=== PATIENT | female | born 1990 | race Caucasian/White ===

== ENCOUNTER 2017-09-01 13:09 | Emergency (ER) | payer SELFPAY ==
[2017-09-01 13:19] VITALS: BP 122/70
--- NOTE | 2017-09-01 13:36 | ER Document Report ---
ED Medical Screen (RME) - General Chief Complaint: Vaginal Bleeding Stated Complaint: VAGINAL BLEEDING Time Seen by Provider: 09/01/17 13:21 Mode of Arrival: Ambulatory Information source: Patient TRAVEL OUTSIDE OF THE [place] IN LAST 30 DAYS: No - HPI Patient complains to provider of: Vaginal bleeding Onset: This morning Notes: 09/01/17 13:36 Patient is a 27-year-old female presenting to the emergency room today complaining of vaginal bleeding and brownish discharge, with mild cramping, states her last menstrual period was 08/07/2017 and she normally has a menstrual cycle every 28 days regularly, she states that her thinks she may be because she is having other symptoms that are associated with , and wants to ensure she is not currently having a miscarriage, patient did not take a home test - Related Data Allergies/Adverse Reactions: No Known Allergies Allergy (Verified 09/01/17 13:16) Past Medical History Renal/ Medical History: Denies: Hx Peritoneal Dialysis Physical Exam - Vital signs Vitals: Temp Pulse Resp BP Pulse Ox 98.2 F 90 16 122/70 100 09/01/17 13:16 09/01/17 13:16 09/01/17 13:16 09/01/17 13:16 09/01/17 13:16 Course - Vital Signs Vital signs: Temp Pulse Resp BP Pulse Ox 98.2 F 90 16 122/70 100 09/01/17 13:16 09/01/17 13:16 09/01/17 13:16 09/01/17 13:16 09/01/17 13:16
[2017-09-01 14:21] LABS: APPEARANCE,URINE CLEAR; BILIRUBIN,URINE NEGATIVE (NEGATIVE); GLUCOSE, URINE NEGATIVE (NEGATIVE); KETONES,URINE NEGATIVE (NEGATIVE); LEUKOCYTE ESTERASE,URINE NEGATIVE (NEGATIVE); NITRITE,URINE NEGATIVE (NEGATIVE); PROTEIN,URINE NEGATIVE (NEGATIVE); URINE SPECIFIC GRAVITY 1.024; UROBILINOGEN,URINE NEGATIVE mg/dL (<2.0)
--- NOTE | 2017-09-01 14:23 | ER Document Report ---
ED GI/ - General Chief Complaint: Vaginal Bleeding Stated Complaint: VAGINAL BLEEDING Time Seen by Provider: 09/01/17 13:21 Mode of Arrival: Ambulatory TRAVEL OUTSIDE OF THE [place] IN LAST 30 DAYS: No - Related Data Allergies/Adverse Reactions: No Known Allergies Allergy (Verified 09/01/17 13:16) Past Medical History - General Information source: Patient Last Menstrual Period: 08/07/2017 - Social History Smoking Status: Current Every Day Smoker Frequency of alcohol use: None Drug Abuse: None Patient has suicidal ideation: No Patient has homicidal ideation: No Renal/ Medical History: Denies: Hx Peritoneal Dialysis Past Surgical History: Reports: Hx Cholecystectomy, Hx Gynecologic Surgery - c- section x 3 Physical Exam - Vital signs Vitals: Temp Pulse Resp BP Pulse Ox 98.2 F 90 16 122/70 100 09/01/17 13:16 09/01/17 13:16 09/01/17 13:16 09/01/17 13:16 09/01/17 13:16 Interpretation: Normal. No: Tachycardic, Tachypneic Course - Vital Signs Vital signs: Temp Pulse Resp BP Pulse Ox 98.2 F 90 16 122/70 100 09/01/17 13:16 09/01/17 13:16 09/01/17 13:16 09/01/17 13:16 09/01/17 13:16 - Laboratory Result Diagrams: 09/01/17 13:57 09/01/17 13:57
[2017-09-01 14:32] LABS: ABSOLUTE BASOPHILS # (AUTO) 0.1 10^3/uL (0.0-0.2); ABSOLUTE EOSINOPHILS # (AUTO) 0.4 10^3/uL (0.0-0.6); ABSOLUTE MONOCYTES (AUTO) 0.6 10^3/uL (0.1-1.4); ABSOLUTE NEUT (AUTO) 5.3 10^3/uL (1.7-8.2); BASOPHILS % (AUTO) 0.6 % (0-2); EOSINOPHILS % (AUTO) 4.8 % (0-6); HEMATOCRIT 39.5 % (36.0-47.0); HEMOGLOBIN 13.6 g/dL (12.0-15.5); HGB HCT DIFFERENCE 1.3; LYMPHOCYTES % (AUTO) 23.7 % (13-45); MEAN CORPUSCULAR HEMOGLOBIN 31.6 pg (27.0-33.4); MEAN CORPUSCULAR HGB CONC 34.4 g/dL (32.0-36.0); MEAN CORPUSCULAR VOLUME 92 fl (80-97); MONOCYTES % (AUTO) 6.8 % (3-13); RED BLOOD COUNT 4.29 10^6/uL (3.72-5.28); RED CELL DISTRIBUTION WIDTH 12.2 % (11.5-14.0); SEGMENTED NEUTROPHILS % (AUTO) 64.1 % (42-78); WHITE BLOOD COUNT 8.3 10^3/uL (4.0-10.5)
[2017-09-01 14:55] LABS: ALANINE AMINOTRANSFERASE 34 U/L (9-52); ALBUMIN 4.7 g/dL (3.5-5.0); ALKALINE PHOSPHATASE 46 U/L (38-126); ANION GAP 12 (5-19); ASPARTATE AMINO TRANSFERASE 26 U/L (14-36); BILIRUBIN,DIRECT 0.3 mg/dL (0.0-0.4); BILIRUBIN,TOTAL 0.4 mg/dL (0.2-1.3); BLOOD UREA NITROGEN 10 mg/dL (7-20); CALCIUM 9.7 mg/dL (8.4-10.2); CARBON DIOXIDE 26 mmol/L (22-30); CHLORIDE 106 mmol/L (98-107); CREATININE RESULT 0.64 mg/dL (0.52-1.25); GLUCOSE 78 mg/dL (75-110); POTASSIUM 4.1 mmol/L (3.6-5.0); SODIUM 143.6 mmol/L (137-145); TOTAL PROTEIN 7.2 g/dL (6.3-8.2)
[2017-09-01] MEDS ORDERED: LANSOPRAZOLE 30 MG TAB.RAP.DR PO ONE (15:12)
[2017-09-01] MEDS ORDERED: LIDOCAINE 2% VISCOUS SOLN 20 ML UDCUP PO ONE (15:12)
[2017-09-01] MEDS ORDERED: NORMAL SALINE 1000 ML 1,000 ML IV ONE (15:13)
--- NOTE | 2017-09-01 15:13 | ER Document Report ---
ED General - General Chief Complaint: Vaginal Bleeding Stated Complaint: VAGINAL BLEEDING Time Seen by Provider: 09/01/17 13:21 Mode of Arrival: Ambulatory Information source: Patient Notes: 27-year-old female felt shaky at 830 this morning and started having vaginal spotting at 9 AM that was painless. She did have some nausea. L MP August 07. . No new sex partner. No dyspareunia. No vaginal discharge. No dysuria. No fever. She felt lightheaded and vomited twice at 915. She has had chronic daily midline heartburn for 2 weeks. No diarrhea. History of cholecystectomy and 3 C-sections. TRAVEL OUTSIDE OF THE [place] IN LAST 30 DAYS: No - Related Data Allergies/Adverse Reactions: No Known Allergies Allergy (Verified 09/01/17 13:16) Past Medical History - General Information source: Patient Last Menstrual Period: 08/07/2017 - Social History Smoking Status: Current Every Day Smoker Frequency of alcohol use: None Drug Abuse: None Lives with: Family Family History: Reviewed & Not Pertinent Patient has suicidal ideation: No Patient has homicidal ideation: No - Medical History Medical History: Negative Renal/ Medical History: Denies: Hx Peritoneal Dialysis Past Surgical History: Reports: Hx Cholecystectomy, Hx Gynecologic Surgery - c- section x 3 Review of Systems - Review of Systems Constitutional: No symptoms reported EENT: No symptoms reported Cardiovascular: No symptoms reported Respiratory: No symptoms reported Gastrointestinal: No symptoms reported Genitourinary: No symptoms reported Female Genitourinary: See HPI Musculoskeletal: No symptoms reported Skin: No symptoms reported Hematologic/Lymphatic: No symptoms reported Neurological/Psychological: No symptoms reported Physical Exam - Vital signs Vitals: Temp Pulse Resp BP Pulse Ox 98.2 F 90 16 122/70 100 09/01/17 13:16 09/01/17 13:16 09/01/17 13:16 09/01/17 13:16 09/01/17 13:16 Interpretation: Normal - General General appearance: Appears well, Alert - HEENT Head: Normocephalic, Atraumatic Eyes: Normal Pupils: PERRL Neck: Supple. No: Thyroid nodule - Respiratory Respiratory status: No respiratory distress Chest status: Nontender Breath sounds: Normal Chest palpation: Normal - Cardiovascular Rhythm: Regular Heart sounds: Normal auscultation Murmur: No - Abdominal Inspection: Normal Distension: No distension Bowel sounds: Normal Tenderness: Nontender. No: Tender Organomegaly: No organomegaly - Back Back: Normal, Nontender. No: CVA tenderness - Extremities General upper extremity: Normal inspection, Nontender, Normal color, Normal ROM , Normal temperature General lower extremity: Normal inspection, Nontender, Normal color, Normal ROM , Normal temperature, Normal weight bearing. No: Nesha's sign - Neurological Neuro grossly intact: Yes Cognition: Normal Orientation: AAOx4 Waldorf Coma Scale Eye Opening: Spontaneous Waldorf Coma Scale Verbal: Oriented Heena Coma Scale Motor: Obeys Commands Waldorf Coma Scale Total: 15 Speech: Normal Motor strength normal: LUE, RUE, LLE, RLE Sensory: Normal - Psychological Associated symptoms: Normal affect, Normal mood - Skin Skin Temperature: Warm Skin Moisture: Dry Skin Color: Normal Skin irregularity: negative: Rash Course - Re-evaluation Re-evalutation: 09/01/17 15:28 Lab work is negative. She is not . She does not want IV fluid. 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 I will treat her heartburn with proton pump inhibitors. She does not want a pelvic exam or further investigation as to why she has a vaginal bleeding. Still does not have any pelvic pain. - Vital Signs Vital signs: Temp Pulse Resp BP Pulse Ox 98.2 F 90 16 122/70 100 09/01/17 13:16 09/01/17 13:16 09/01/17 13:16 09/01/17 13:16 09/01/17 13:16 - Laboratory Result Diagrams: 09/01/17 13:57 09/01/17 13:57 Discharge - Discharge Clinical Impression: midcycle vaginal bleeding, Dizziness Vomiting Qualifiers: Vomiting type: unspecified Vomiting Intractability: non-intractable Nausea presence: with nausea Qualified Code(s): R11.2 - Nausea with vomiting, unspecified Condition: Good Disposition: HOME, SELF-CARE Instructions: Antinausea Medication ([facility]), Prilosec (Acid Pump Inhibitor) ([facility]) , Reflux Disease (GERD) ([facility]), Vaginal Bleeding ([facility]), Vomiting ([facility]) Additional Instructions: to er if worse plenty of fluids see OBGYN if bleeding persists see bi consultant dr munoz for heartburn if it persists Please complete the patient satisfaction survey if you get one, and return it.. If you do not receive a survey, then you can go to the [facility] website, [email or web address] and place your comments about your very good care. Thank you very much. It was a pleasure being your medical provider today. Prescriptions: Esomeprazole Magnesium [Nexium] 40 mg PO DAILY #30 capsule.dr Referrals: JEM KUMAR MD [ACTIVE STAFF] - Follow up as needed DERIAN MUNOZ MD [ACTIVE STAFF] - Follow up as needed
[2017-09-01] MEDS ORDERED: ONDANSETRON 4 MG TAB.RAPDIS PO ONE (15:25)
[2017-09-01] MEDS ORDERED: MAG HYDROX/AL HYDROX/SIMETH SUSP 30 ML UDCUP PO ONE (15:27)
== END 2017-09-01 15:51 | disposition home or self-care (01) ==
LOC: ER 13:09
DX: R42 Dizziness and giddiness (principal); R11.2 Nausea with vomiting, unspecified; N93.9 Abnormal uterine and vaginal bleeding, unspecified; Z90.49 Acquired absence of other specified parts of digestive tract; F17.200 Nicotine dependence, unspecified, uncomplicated
CPT/HCPCS: 99284; 86900; 86901; 36415; 84702; 85025; 80053; 81001; S0119; J3490

== ENCOUNTER 2020-06-04 09:10 | Emergency (ER) | payer SELFPAY ==
[2020-06-04 09:50] LABS: ABSOLUTE BASOPHILS # (AUTO) 0.1 10^3/uL (0.0-0.2); ABSOLUTE EOSINOPHILS # (AUTO) 0.2 10^3/uL (0.0-0.6); ABSOLUTE LYMPHOCYTES (AUTO) 1.3 10^3/uL (0.5-4.7); ABSOLUTE MONOCYTES (AUTO) 0.6 10^3/uL (0.1-1.4); ABSOLUTE NEUT (AUTO) 6.8 10^3/uL (1.7-8.2); BASOPHILS % (AUTO) 0.9 % (0-2); HEMOGLOBIN 14.3 g/dL (12.0-15.5); LYMPHOCYTES % (AUTO) 14.1 % (13-45); MEAN CORPUSCULAR HEMOGLOBIN 32.1 pg (27.0-33.4); MEAN CORPUSCULAR VOLUME 95 fl (80-97); MONOCYTES % (AUTO) 6.9 % (3-13); PLATELET COUNT 301 10^3/uL (150-450); RED BLOOD COUNT 4.44 10^6/uL (3.72-5.28); RED CELL DISTRIBUTION WIDTH 12.6 % (11.5-14.0); SEGMENTED NEUTROPHILS % (AUTO) 76.1 % (42-78); TOTAL CELLS COUNTED % (AUTO) 100 %; WHITE BLOOD COUNT 8.9 10^3/uL (4.0-10.5)
[2020-06-04 10:05] LABS: ALBUMIN 4.2 g/dL (3.5-5.0); ALKALINE PHOSPHATASE 42 U/L (38-126); ASPARTATE AMINO TRANSFERASE 23 U/L (14-36); BILIRUBIN,TOTAL 0.4 mg/dL (0.2-1.3); BLOOD UREA NITROGEN 6 mg/dL (7-20); CALCIUM 9.1 mg/dL (8.4-10.2); CARBON DIOXIDE 27 mmol/L (22-30); CHLORIDE 107 mmol/L (98-107); GLUCOSE 98 mg/dL (75-110); POTASSIUM 4.2 mmol/L (3.6-5.0); TOTAL PROTEIN 6.8 g/dL (6.3-8.2)
[2020-06-04 10:06] LABS: ALCOHOL < 10 mg/dL (NONE DETECTED); ANION GAP 5 (5-19)
[2020-06-04 11:58] LABS: APPEARANCE,URINE SLIGHTLY-CLOUDY; BILIRUBIN,URINE NEGATIVE (NEGATIVE); COLOR,URINE YELLOW; GLUCOSE, URINE NEGATIVE (NEGATIVE); KETONES,URINE NEGATIVE (NEGATIVE); LEUKOCYTE ESTERASE,URINE TRACE (NEGATIVE); NITRITE,URINE NEGATIVE (NEGATIVE); PROTEIN,URINE 100 mg/dL (NEGATIVE); URINE SPECIFIC GRAVITY 1.024; UROBILINOGEN,URINE NEGATIVE mg/dL (<2.0)
[2020-06-04 12:16] LABS: URINE AMPHETAMINES SCREEN NEGATIVE; URINE BARBITURATES SCREEN NEGATIVE; URINE BENZODIAZEPINES SCREEN NEGATIVE; URINE COCAINE SCREEN NEGATIVE; URINE METHADONE SCREEN NEGATIVE; URINE PHENCYCLIDINE SCREEN NEGATIVE
[2020-06-04 12:21] LABS: URINE MARIJUANA (THC) SCREEN UNCONFIRMED POSITIVE
--- NOTE | 2020-06-04 13:04 | ER Document Report ---
ED General - General Chief Complaint: Probable Seizure Stated Complaint: SEIZURES Time Seen by Provider: 06/04/20 10:08 Primary Care Provider: EPI BEAVERS MD [NO LOCAL MD] - Follow up as needed KOKI PEREZ MD [ACTIVE STAFF] - Follow up as needed TRAVEL OUTSIDE OF THE [place] IN LAST 30 DAYS: No - HPI Notes: Patient is a 29-year-old female who presents to the emergency department for evaluation after a possible seizure. The patient states she has a history of seizures. She has been off of medications. She states her last seizure was over 15 months ago. She states today she felt dizzy, nearly fell off of the toilet. She went into her bed and "lost time." She states that is what is like when she feels like she has had a seizure. She is driving. She denies any pain. She said no recent head trauma. She states she was not incontinent, did not bite her tongue. She does states she feels "[id number] all over." She was on medications in the past to control her seizures, but she cannot remember what they were. She is currently menstruating. - Related Data Allergies/Adverse Reactions: No Known Allergies Allergy (Verified 09/01/17 13:16) Home Medications: None Past Medical History - General Information source: Patient - Social History Smoking Status: Current Every Day Smoker Frequency of alcohol use: None Family History: Reviewed & Not Pertinent Neurological Medical History: Reports: Hx Seizures Renal/ Medical History: Denies: Hx Peritoneal Dialysis Past Surgical History: Reports: Hx Section - X3, Hx Cholecystectomy Review of Systems - Review of Systems Constitutional: Weakness Neurological/Psychological: See HPI -: Yes All other systems reviewed and negative Physical Exam - Vital signs Vitals: Temp Pulse Resp BP Pulse Ox 98.6 F 78 18 118/83 98 06/04/20 09:16 06/04/20 09:16 06/04/20 09:16 06/04/20 09:16 06/04/20 09:16 - Notes Notes: Vital signs reviewed, please refer to chart. Head is normocephalic, atraumatic. Pupils equal round, reactive to light. Neck is supple without meningismus. Heart is regular rate and rhythm. Lungs are clear to auscultation bilaterally. Abdomen is soft, nontender, normoactive bowel sounds throughout. Extremities without cyanosis, clubbing. Posterior calves are nontender. Peripheral pulses are equal. Skin is warm and dry. Patient is awake, alert, oriented x3. She is slow to follow commands, but can do so without difficulty or apparent confusion. Cranial nerves II - XII are grossly intact without focal neurological deficits. Strength is plus 4 out of 5 bilateral upper and lower extremities. Sensation is intact. Reflexes symmetrical. Intact [id number], rapid alternating movements, [id number]. Course - Re-evaluation Re-evalutation: 06/04/20 13:07 Patient presents to the emergency department for evaluation of reported possible seizure. Her laboratory investigations are entirely unremarkable. Her neurological exam reveals mildly diminished strength throughout, but no focal findings. I explained to the patient that under no circumstances should she be operating a motor vehicle. She has a history of a seizure disorder, was on medications, and is off of them now. She needs to follow-up with primary care and neurology. She voiced understanding to these instructions, given both verbally and written. Otherwise, she has no significant acidosis. Her only significant abnormality was marijuana in her drug screen. She has blood in her urine, but again the patient is currently menstruating. She has no urinary symptoms. I will write for a short course of Keppra in this patient, but encouraged her to follow-up closely with neurology and primary care. She is to return to the ED with worsening. - Vital Signs Vital signs: Temp Pulse Resp BP Pulse Ox 98.6 F 78 12 117/82 97 06/04/20 09:16 06/04/20 09:16 06/04/20 13:01 06/04/20 13:01 06/04/20 13:01 - Laboratory Result Diagrams: 06/04/20 09:36 06/04/20 09:36 Laboratory results interpreted by me: 06/04/20 06/04/20 09:36 11:25 BUN 6 L Urine Protein 100 H Urine Blood MODERATE H Ur Leukocyte Esterase TRACE H Urine Ascorbic Acid 40 H Discharge - Discharge Clinical Impression: Seizure Condition: Stable Disposition: HOME, SELF-CARE Instructions: Seizure, Known Epileptic ([facility]) Additional Instructions: No clear lab abnormalities were found today. You need to follow-up with primary care and neurology. You absolutely should not be driving. Return to the emergency department with worsening or new concerning symptoms of any sort. Prescriptions: Levetiracetam [Keppra 500 mg Tablet] 500 mg PO Q12 #30 tablet Referrals: EPI BEAVERS MD [NO LOCAL MD] - Follow up as needed KOKI PEREZ MD [ACTIVE STAFF] - Follow up as needed
[2020-06-04 13:31] VITALS: BP 125/90
== END 2020-06-04 13:30 | disposition home or self-care (01) ==
LOC: ER 09:10
DX: R56.9 Unspecified convulsions (principal); R42 Dizziness and giddiness; R31.9 Hematuria, unspecified; F17.200 Nicotine dependence, unspecified, uncomplicated
CPT/HCPCS: 36415; 80053; 80307; 81001; 83735; 84703; 85025; 99284